=== PATIENT | male | born 1985 | race American Indian/Alaskan Native ===

== ENCOUNTER 2022-01-19 13:53 | Emergency (ER) | payer SELFPAY ==
[2022-01-19 14:25] VITALS: BP 109/73
--- NOTE | 2022-01-19 14:35 | Emergency Department Report ---
ED Back Pain/Injury HPI - General Chief Complaint: Back Pain/Injury Stated Complaint: BACK PAIN/SHOULDER PAIN Time Seen by Provider: 01/19/22 14:29 Source: patient Limitations: No Limitations - History of Present Illness Initial Comments: 36 yo black male with no pmh presents to ed for evaluation of neck and lower back pain. He states that pain started about 3 weeks ago and denies any injury or trauma. He denies fever, abdominal pain, and urinary symptoms. He states that he has not taken any medication for his symptoms. MD Complaint: back pain -: Gradual, week(s) (3) Similar Symptoms Previously: No Place: home Radiation: right leg Severity: severe Severity scale (0 -10): 10 Quality: aching Consistency: constant Associated Symptoms: denies: confusion, weakness, chest pain, numbness, difficulty walking, cough, difficulty urinating, diaphoresis, incontinence, fever/chills, headaches, abdominal pain, loss of appetite, malaise, nausea/vomiting, rash, seizure, shortness of breath, syncope - Related Data Previous Rx's Medication Instructions Recorded Last Taken Type Cyclobenzaprine [Flexeril] 10 mg PO TID PRN #30 tab 01/19/22 Unknown Rx Ketorolac [Toradol] 10 mg PO Q6H PRN #12 tab 01/19/22 Unknown Rx methylPREDNISolone [Medrol 4MG 4 mg PO DAILY #1 pack 01/19/22 Unknown Rx DOSEPAK (21 tabs)] Allergies Allergy/AdvReac Type Severity Reaction Status Date / Time No Known Allergies Allergy Verified 01/19/22 14:25 ED Review of Systems ROS: Stated complaint: BACK PAIN/SHOULDER PAIN Other details as noted in HPI Comment: All other systems reviewed and negative Constitutional: denies: chills, fever, weakness ENT: denies: congestion Respiratory: denies: shortness of breath Cardiovascular: denies: chest pain, palpitations Gastrointestinal: denies: abdominal pain, nausea, vomiting, diarrhea, hematemesis, melena, hematochezia Genitourinary: denies: urgency, dysuria, frequency, hematuria, discharge Musculoskeletal: back pain Skin: denies: rash, lesions Neurological: denies: headache, weakness ED Past Medical Hx - Past Medical History Previous Medical History?: No - Surgical History Past Surgical History?: No - Medications Home Medications: Home Medications Medication Instructions Recorded Confirmed Last Taken Type Cyclobenzaprine [Flexeril] 10 mg PO TID PRN #30 tab 01/19/22 Unknown Rx Ketorolac [Toradol] 10 mg PO Q6H PRN #12 tab 01/19/22 Unknown Rx methylPREDNISolone [Medrol 4MG 4 mg PO DAILY #1 pack 01/19/22 Unknown Rx DOSEPAK (21 tabs)] ED Physical Exam - General Limitations: No Limitations General appearance: alert - Head Head exam: Present: atraumatic, normocephalic - Eye Eye exam: Present: normal appearance - Neck Neck exam: Present: normal inspection, tenderness (bilateral, no midline vertebral tenederness noted. ), full ROM. Absent: lymphadenopathy - Respiratory Respiratory exam: Present: normal lung sounds bilaterally. Absent: respiratory distress, wheezes, rales, rhonchi, stridor, chest wall tenderness - Cardiovascular Cardiovascular Exam: Present: regular rate, normal heart sounds - GI/Abdominal GI/Abdominal exam: Present: soft, normal bowel sounds. Absent: distended, tenderness, guarding, rebound, rigid - Extremities Exam Extremities exam: Present: normal inspection, normal capillary refill - Back Exam Back exam: Present: normal inspection, tenderness (bilateral lower with radiation down right leg. ). Absent: CVA tenderness (R), CVA tenderness (L) - Neurological Exam Neurological exam: Present: alert, oriented X3, CN II-XII intact, normal gait, reflexes normal. Absent: motor sensory deficit - Psychiatric Psychiatric exam: Present: normal affect, normal mood - Skin Skin exam: Present: warm, dry, intact, normal color ED Course Vital Signs 01/19/22 14:22 Temperature 98.9 F Pulse Rate 74 Respiratory 16 Rate Blood Pressure 109/73 [Left] O2 Sat by Pulse 99 Oximetry ED Medical Decision Making - Medical Decision Making 36 yo black male with no pmh presents to ed for evaluation of neck and lower back pain. He states that pain started about 3 weeks ago and denies any injury or trauma. He denies fever, abdominal pain, and urinary symptoms. He states that he has not taken any medication for his symptoms. Physical exam unremarkable. Discharged home with medications to use as pain and advised to follow up with orthopedics for further evaluation and management. He verbalized understanding of and agreement with plan of care. Critical care attestation.: If time is entered above; I have spent that time in minutes in the direct care of this critically ill patient, excluding procedure time. ED Disposition Clinical Impression: Back pain Qualifiers: Back pain location: low back pain Chronicity: acute Back pain laterality: bilateral Sciatica presence: with sciatica Sciatica laterality: sciatica of right side Qualified Code(s): M54.41 - Lumbago with sciatica, right side Disposition: 01 HOME / SELF CARE / HOMELESS Is pt being admited?: No Does the pt Need Aspirin: No Condition: Stable Instructions: Acute Back Pain, Adult, Sciatica, [id number], Sciatica Rehab- [facility] Additional Instructions: Take medications as prescribed and follow up with orthopedics if no improvement or worsening symptoms. Return to ED as needed. Prescriptions: Cyclobenzaprine [Flexeril] 10 mg PO TID PRN #30 tab PRN Reason: Muscle Spasm methylPREDNISolone [Medrol 4MG DOSEPAK (21 tabs)] 4 mg PO DAILY #1 pack Ketorolac [Toradol] 10 mg PO Q6H PRN #12 tab PRN Reason: Pain Referrals: NANCY MILES MD [Staff Physician] - 3-5 Days Time of Disposition: 14:35
== END 2022-01-19 15:20 | disposition home or self-care (01) ==
LOC: ED 13:53
DX: M54.2 Cervicalgia (principal); M54.50 Low back pain, unspecified; Z79.899 Other long term (current) drug therapy
CPT/HCPCS: 99282